=== PATIENT | female | born 1975 | race African-American/Black ===

== ENCOUNTER 2016-11-03 10:11 | Emergency (ER) | payer SELFPAY ==
[2016-11-03] MEDS ORDERED: Albuterol/Ipratropium NEB.SOL* Albuterol 2.5 MG/Ipratropium 0.5 MG 3 ML INH ONE (10:44)
[2016-11-03] MEDS ORDERED: Albuterol 2.5 MG/3 ML NEB.SOL* (0.083%) INH PRN (10:50)
[2016-11-03] MEDS ORDERED: Albuterol 2.5 MG/3 ML NEB.SOL* (0.083%) ONE (10:53)
[2016-11-03] MEDS ORDERED: methylPREDNISolone 125 MG* 2 ML VIAL IV ONE (11:04)
[2016-11-03] MEDS ORDERED: Magnesium Sulfate 2 GM IV* 2 GM/50 ML BAG IVPB ONE (11:39)
[2016-11-03 12:37] VITALS: BP 116/57
--- NOTE | 2016-11-03 15:20 | ED ---
I, Lon,Ravi, scribed for William Grewal MD on 11/03/16 at 1141 . Shortness of Breath - HPI Summary HPI Summary: This 41 y/o female presents to ED via private vehicle for acute on chronic SOB since this morning. She reports nonproductive cough. PMHx does include known asthma. Negative fever, chills, CP, or rhinorrhea. Pt has been out of Dulera since 2 weeks ago, but was not able to get prescription. Pt does have inhaler at home. Pt states that she is nonsmoker. - History of Current Complaint Chief Complaint: EDAsthma Hx Obtained From: Patient Onset/Duration: Sudden Onset Timing: Constant Current Severity: Moderate Dyspnea At: Rest Aggrevating Factors: Nothing Alleviating Factors: Nothing Associated Signs & Symptoms: Negative - Allergy/Home Medications Allergies/Adverse Reactions: Allergies Allergy/AdvReac Type Severity Reaction Status Date / Time Ibuprofen Allergy Anaphylatic Verified 11/03/16 10:14 Shock PMH/Surg Hx/FS Hx/Imm Hx Respiratory History: Reports: Hx Asthma - Surgical History Surgery Procedure, Year, and Place: tubal ligation 1997 Infectious Disease History: No Infectious Disease History: Denies: Traveled Outside the [place] in Last 30 Days - Family History Known Family History: Negative: Cardiac Disease - Social History Alcohol Use: Occasionally Hx Substance Use: No Substance Use Type: Reports: None Hx Tobacco Use: Yes Smoking Status (MU): Former Smoker Review of Systems Negative: Fever Negative: Erythema Negative: Sore Throat, Nasal Discharge Negative: Chest Pain Positive: Shortness Of Breath, Cough Negative: Abdominal Pain, Vomiting, Nausea Negative: dysuria, hematuria Negative: Edema Negative: Rash All Other Systems Reviewed And Are Negative: Yes Physical Exam - Summary Physical Exam Summary: Constitutional: Well-developed, Well-nourished, Alert. (-) Distressed Skin: Warm, Dry HENT: Normocephalic; Atraumatic Eyes: Conjunctiva normal Neck: Musculoskeletal ROM normal neck. (-) JVD, (-) Stridor, (-) Tracheal deviation Respiratory: Expiratory wheezes, Decreased breath sound. Cardio: Rhythm regular, rate normal, Heart sounds normal; Intact distal pulses; The pedal pulses are 2+ and symmetric. Radial pulses are 2+ and symmetric. (-) Murmur Pulmonary/Chest wall: Effort normal. (-) Respiratory distress, (-) Wheezes, (-) Rales Abd: Soft, (-) Tenderness, (-) Distension, (-) Guarding, (-) Rebound Musculoskeletal: (-) Edema Lymph: (-) Cervical adenopathy Neuro: Alert, Oriented x3 Psych: Mood and affect Normal Triage Information Reviewed: Yes Vital Signs On Initial Exam: Initial Vitals Temp Pulse Resp BP Pulse Ox 97.2 F 125 24 151/87 98 11/03/16 10:14 11/03/16 10:14 11/03/16 10:14 11/03/16 10:14 11/03/16 10:14 Vital Signs Reviewed: Yes - [place] Coma Scale Coma Scale Total: 15 Diagnostics - Vital Signs Vital Signs Temp Pulse Resp BP Pulse Ox 11/03/16 11:31 104 27 95 11/03/16 11:29 127 25 96 11/03/16 11:18 97.1 F 123 22 148/79 98 11/03/16 10:14 97.2 F 125 24 151/87 98 - Laboratory Lab Statement: Any lab studies that have been ordered have been reviewed, and results considered in the medical decision making process. Course/Dx - Course Assessment/Plan: This 41 y/o female presents to ED with chief complaint of SOB worse since this morning. Pt reports increased SOB and difficulty controlling her known asthma since she ran out of [place] ~ 2 weeks ago. She reports difficulty obtaining her rx due to lack of her insurance. Pt symptomically treated with inhalation tx during her ED course, and her breathing improved. Pt is discharged with Urgent Rx voucher and is instructed to f/u with her primary care doctor. - Diagnoses Provider Diagnoses: Asthma exacerbation Discharge - Discharge Plan Condition: Stable Disposition: HOME Prescriptions: Albuterol 2.5MG/3ML (0.083%)* [Ventolin 2.5 MG/3 ML NEB.TELLO*] 2.5 mg INH Q4H PRN #84 neb.soln PRN Reason: Sob/Wheezing Albuterol HFA INHALER* [Ventolin HFA Inhaler*] 2 puff INH Q4H PRN #1 mdi PRN Reason: Sob/Wheezing predniSONE TAB* [Deltasone TAB*] 50 mg PO DAILY #5 tab Patient Education Materials: Asthma (ED), Prednisone (By mouth), Albuterol (By breathing) Referrals: Arleen Ayers MD [Primary Care Provider] - 2 Days The documentation as recorded by the Lon cruz Soohyun accurately reflects the service I personally performed and the decisions made by , William Grewal MD.
== END 2016-11-03 13:58 | disposition home or self-care (01) ==
LOC: ED 10:11
DX: J45.901 Unspecified asthma with (acute) exacerbation (principal); Z87.891 Personal history of nicotine dependence
CPT/HCPCS: 94150; 94640; 96365; 96374; 99282; A9270-GY; J2930; J3475

== ENCOUNTER 2017-02-26 17:41 | Emergency (ER) | payer SELFPAY ==
[2017-02-26] MEDS ORDERED: HYDROcodone/ACETAMIN 5-325 MG* 1 TAB PO ONE (19:08)
[2017-02-26] MEDS ORDERED: Clindamycin 600 MG IVPREMIX(* 600 MG/50 ML SDV IV ONE (19:08)
--- NOTE | 2017-02-26 19:11 | ED ---
Throat Pain/Nasal Congestion - HPI Summary HPI Summary: Pt here w/ what she believes is an abscess in her Rt cheek/face. Started as sinus pressure yesterday and swollen today. She has dental fractures in multiple teeth along Rt upper maxilla and reports h/o abscesses as a result of these teeth. She has not had an infection in years. Denies drainage, foul taste , fever, chills, eye pain, neck pain, trouble breathing or swallowing. Has a dental appt in 2 weeks where she plans to request extraction. Went to work today and plans to go to work tomorrow. - History of Current Complaint Chief Complaint: EDDentalPain Time Seen by Provider: 02/26/17 18:56 Hx Obtained From: Patient - Allergies/Home Medications Allergies/Adverse Reactions: Allergies Allergy/AdvReac Type Severity Reaction Status Date / Time Ibuprofen Allergy Anaphylatic Verified 02/26/17 18:09 Shock PMH/Surg Hx/FS Hx/Imm Hx Respiratory History: Reports: Hx Asthma - Surgical History Surgery Procedure, Year, and Place: tubal ligation 1997 Infectious Disease History: No Infectious Disease History: Denies: Traveled Outside the [place] in Last 30 Days - Family History Known Family History: Negative: Cardiac Disease - Social History Alcohol Use: Occasionally Hx Substance Use: No Substance Use Type: Reports: None Hx Tobacco Use: Yes Smoking Status (MU): Former Smoker Physical Exam Vital Signs On Initial Exam: Initial Vitals Temp Pulse Resp BP Pulse Ox 98.7 F 84 18 137/87 97 02/26/17 17:43 02/26/17 17:43 02/26/17 17:43 02/26/17 17:43 02/26/17 17:43 Diagnostics - Vital Signs Vital Signs Temp Pulse Resp BP Pulse Ox 02/26/17 18:06 97.7 F 82 18 136/66 100 02/26/17 17:43 98.7 F 84 18 137/87 97 - Laboratory Lab Statement: Any lab studies that have been ordered have been reviewed, and results considered in the medical decision making process.
[2017-02-26 20:18] VITALS: BP 132/86
== END 2017-02-26 20:17 | disposition home or self-care (01) ==
LOC: ED 17:41
DX: K08.89 Other specified disorders of teeth and supporting structures (principal); J45.909 Unspecified asthma, uncomplicated; Z87.891 Personal history of nicotine dependence
CPT/HCPCS: 96374; 99282

== ENCOUNTER 2017-10-15 08:56 | Emergency (ER) | payer OTHER ==
[2017-10-15] MEDS ORDERED: Albuterol/Ipratropium NEB.SOL* Albuterol 2.5 MG/Ipratropium 0.5 MG 3 ML INH ONE ×2 (09:05→10:06)
[2017-10-15] MEDS ORDERED: methylPREDNISolone 125 MG* 2 ML VIAL IV ONE (09:05)
[2017-10-15 09:44] LABS: ABS Basophils 0 10^3/ul (0-0.2); ABS Eosinophils 0.7 10^3/ul (0-0.6); ABS Monocytes 0.5 10^3/ul (0-0.8); ABS Neutrophils 3.1 10^3/ul (1.5-7.7); ABS Nucleated RBC 0 10^3/ul; Eosinophil % 10.4 % (0-6); Hematocrit 39 % (35-47); Hemoglobin 13.2 g/dl (12.0-16.0); Mean Corpuscular HGB Conc 34 g/dl (31-36); Mean Corpuscular Hemoglobin 28 pg (27-31); Mean Corpuscular Volume 82 fL (80-97); Mean Platelet Volume 9 um3 (7.4-10.4); Nucleated Red Blood Cells % 0.1; Platelet Count 300 10^3/ul (150-450); Red Blood Count 4.72 10^6/ul (4.0-5.4); Red Cell Distribution Width 14 % (10.5-15); White Blood Count 6.4 10^3/ul (3.5-10.8)
[2017-10-15 10:02] LABS: EGFR Non-African American 93.8 (>60)
[2017-10-15] MEDS ORDERED: NS 0.9% 1000 ML* 1,000 ML IV ONE (10:04)
--- NOTE | 2017-10-15 10:06 | RAD ---
INDICATION: Wheezing COMPARISON: None TECHNIQUE: PA and lateral views of the chest were obtained. FINDINGS: The heart and mediastinum are normal in size and contour. The lungs are grossly clear. There is no evidence of large pleural effusion. Visualized bones are normal for the patient's age. There is no radiographic evidence of free air beneath the diaphragm IMPRESSION: No radiographic evidence of acute cardiopulmonary disease.
[2017-10-15] MEDS ORDERED: Acetaminophen TAB* 325 MG PO ONE (10:13)
--- NOTE | 2017-10-15 10:23 | ED ---
Asthma - HPI Summary HPI Summary: Patient presents to the ED with CC of asthma exacerbation since this morning. She notes to worsening wheezing since yesterday and has been using her at home nebulizer treatments without effect. She notes to cough with congestion as well. Yellow sputum - mild amount. Denies fevers, sweats and chills. Denies abd pain, N/V/C/D. Pulses +2 bilaterally and cap refill < 2 sec. Appears in respiratory distress without pursed lips or discolorations noted to fingertips or lips. At home medications include Dolera. She also has albuterol and nebulizer. Otherwise healthy. Denies sick contacts. Denies smoking history. - History of Current Complaint Chief Complaint: EDShortnessOfBreath Stated Complaint: CHEST CONGESTION/COUGH/HEADACHE Time Seen by Provider: 10/15/17 08:58 Hx Obtained From: Patient Hx Last Menstrual Period: last month Onset/Duration: Sudden Onset Timing: Constant Initial Severity: Moderate Current Severity: Moderate Pain Intensity: 7 Pain Scale Used: 0-10 Numeric Location/Character: Cough (Productive) Aggravating Symptoms: Weather Change, Allergens Alleviating Symptoms: Steriods, Inhalers/Nebulizers Associated Signs and Symptoms: Positive: URI, Shortness of Breath - Risk Factors Status Asthmaticus Risk Factors: Negative - Allergy/Home Medications Allergies/Adverse Reactions: Allergies Allergy/AdvReac Type Severity Reaction Status Date / Time Ibuprofen Allergy Anaphylatic Verified 10/15/17 09:00 Shock PMH/Surg Hx/FS Hx/Imm Hx Previously Healthy: Yes Endocrine/Hematology History: Denies: Hx Anticoagulant Therapy, Hx Blood Disorders, Hx Unexplained Bleeding Respiratory History: Reports: Hx Asthma - Surgical History Surgery Procedure, Year, and Place: tubal ligation 1997 - Immunization History Hx Pertussis Vaccination: No Immunizations Up to Date: Unable to Obtain/Confirm Infectious Disease History: No Infectious Disease History: Denies: Traveled Outside the [place] in Last 30 Days - Family History Known Family History: Negative: Cardiac Disease - Social History Occupation: Employed Full-time Lives: With Family Alcohol Use: Occasionally Hx Substance Use: No Substance Use Type: Reports: None Hx Tobacco Use: Yes Smoking Status (MU): Former Smoker Review of Systems Constitutional: Negative Negative: Fever, Chills, Fatigue, Skin Diaphoresis Eyes: Negative Cardiovascular: Negative Positive: Shortness Of Breath, Cough Gastrointestinal: Negative Genitourinary: Negative Positive: no symptoms reported, see HPI Skin: Negative Neurological: Negative All Other Systems Reviewed And Are Negative: Yes Physical Exam Triage Information Reviewed: Yes Vital Signs On Initial Exam: Initial Vitals Temp Pulse Resp BP Pulse Ox 96.8 F 104 28 154/91 99 10/15/17 09:01 10/15/17 09:01 10/15/17 09:01 10/15/17 09:01 10/15/17 09:01 Vital Signs Reviewed: Yes Appearance: Positive: Well-Appearing - respiratory distress Skin: Positive: Skin Color Reflects Adequate Perfusion Head/Face: Positive: Normal Head/Face Inspection Eyes: Positive: EOMI, SUSANNA, Conjunctiva Clear Neck: Positive: Supple, Nontender, No Lymphadenopathy Respiratory/Lung Sounds: Positive: Breath Sounds Present, Wheezes. Negative: Decreased Breath Sounds, Subcutaneous Emphysema, Stridor, Tracheal Deviation Cardiovascular: Positive: RRR, Pulses are Symmetrical in both Upper and Lower Extremities Musculoskeletal: Positive: Normal, Strength/ROM Intact Neurological: Positive: Sensory/Motor Intact, Alert, Oriented to Person Place, Time, Speech Normal Psychiatric: Positive: Affect/Mood Appropriate - [place] Coma Scale Coma Scale Total: 15 Diagnostics - Vital Signs Vital Signs Temp Pulse Resp BP Pulse Ox 10/15/17 09:27 97 16 100 10/15/17 09:23 103 98 10/15/17 09:01 96.8 F 104 28 154/91 99 - Laboratory Lab Results: Lab Results 10/15/17 10/15/17 10/15/17 Range/Units 09:27 09:33 09:33 WBC 6.4 (3.5-10.8) 10^3/ul RBC 4.72 (4.0-5.4) 10^6/ul Hgb 13.2 (12.0-16.0) g/dl Hct 39 (35-47) % MCV 82 (80-97) fL MCH 28 (27-31) pg MCHC 34 (31-36) g/dl RDW 14 (10.5-15) % Plt Count 300 (150-450) 10^3/ul MPV 9 (7.4-10.4) um3 Neut % (Auto) 48.9 (38-83) % Lymph % (Auto) 32.0 (25-47) % [place] % (Auto) 7.9 (1-9) % Eos % (Auto) 10.4 H (0-6) % Baso % (Auto) 0.8 (0-2) % Absolute Neuts (auto) 3.1 (1.5-7.7) 10^3/ul Absolute Lymphs (auto) 2.0 (1.0-4.8) 10^3/ul Absolute Monos (auto) 0.5 (0-0.8) 10^3/ul Absolute Eos (auto) 0.7 H (0-0.6) 10^3/ul Absolute Basos (auto) 0 (0-0.2) 10^3/ul Absolute Nucleated RBC 0 10^3/ul Nucleated RBC % 0.1 Sodium 135 (133-145) mmol/L Potassium 3.5 (3.5-5.0) mmol/L Chloride 106 (101-111) mmol/L Carbon Dioxide 20 L (22-32) mmol/L Anion Gap 9 (2-11) mmol/L BUN 5 L (6-24) mg/dL Creatinine 0.69 (0.51-0.95) mg/dL Est GFR ( Amer) 120.6 (>60) Est GFR (Non-Af Amer) 93.8 (>60) BUN/Creatinine Ratio 7.2 L (8-20) Glucose 93 (70-100) mg/dL Lactic Acid (0.5-2.0) mmol/L Calcium 9.4 (8.6-10.3) mg/dL Total Bilirubin 0.70 (0.2-1.0) mg/dL AST 20 (13-39) U/L ALT 15 (7-52) U/L Alkaline Phosphatase 56 (34-104) U/L Troponin I 0.00 (<0.04) ng/mL C-Reactive Protein < 1.00 (< 5.00) mg/L Total Protein 7.0 (6.4-8.9) g/dL Albumin 4.1 (3.2-5.2) g/dL Globulin 2.9 (2-4) g/dL Albumin/Globulin Ratio 1.4 (1-3) Beta HCG, Quant < 0.60 mIU/mL Influenza A (Rapid) Negative (Negative) Influenza B (Rapid) Negative (Negative) 10/15/17 Range/Units 09:33 WBC (3.5-10.8) 10^3/ul RBC (4.0-5.4) 10^6/ul Hgb (12.0-16.0) g/dl Hct (35-47) % MCV (80-97) fL MCH (27-31) pg MCHC (31-36) g/dl RDW (10.5-15) % Plt Count (150-450) 10^3/ul MPV (7.4-10.4) um3 Neut % (Auto) (38-83) % Lymph % (Auto) (25-47) % [place] % (Auto) (1-9) % Eos % (Auto) (0-6) % Baso % (Auto) (0-2) % Absolute Neuts (auto) (1.5-7.7) 10^3/ul Absolute Lymphs (auto) (1.0-4.8) 10^3/ul Absolute Monos (auto) (0-0.8) 10^3/ul Absolute Eos (auto) (0-0.6) 10^3/ul Absolute Basos (auto) (0-0.2) 10^3/ul Absolute Nucleated RBC 10^3/ul Nucleated RBC % Sodium (133-145) mmol/L Potassium (3.5-5.0) mmol/L Chloride (101-111) mmol/L Carbon Dioxide (22-32) mmol/L Anion Gap (2-11) mmol/L BUN (6-24) mg/dL Creatinine (0.51-0.95) mg/dL Est GFR ( Amer) (>60) Est GFR (Non-Af Amer) (>60) BUN/Creatinine Ratio (8-20) Glucose (70-100) mg/dL Lactic Acid 1.5 (0.5-2.0) mmol/L Calcium (8.6-10.3) mg/dL Total Bilirubin (0.2-1.0) mg/dL AST (13-39) U/L ALT (7-52) U/L Alkaline Phosphatase (34-104) U/L Troponin I (<0.04) ng/mL C-Reactive Protein (< 5.00) mg/L Total Protein (6.4-8.9) g/dL Albumin (3.2-5.2) g/dL Globulin (2-4) g/dL Albumin/Globulin Ratio (1-3) Beta HCG, Quant mIU/mL Influenza A (Rapid) (Negative) Influenza B (Rapid) (Negative) Result Diagrams: 10/15/17 09:33 10/15/17 09:33 Lab Statement: Any lab studies that have been ordered have been reviewed, and results considered in the medical decision making process. Asthma Course/Dx - Course Course Of Treatment: During the course of treatment, patient is noted to be wheezing and in respiratory distress. She is given inhalation treatment immediatley on arrival. Feels improved. 125mg Solumedrol given. Labs obtained and chest xray with no acute findings. VS remain stable and continues to sat on RA at 98%. She declines another inhalation treatment. She is observed for 3 hours and breathing is improved. She is given 5 days prednisone , azithromycin d/t mucous production with cough and COPD history. She is given a note for 2 days out of work. She states she has all albuterol/inhalation treatments at home and does not require prescriptions. Treatment options explained to patient. Patient understands the plan, voices no concerns at this time and understands the return precatuions given to them if they develop any worsening or changing symptoms. They are OK for discharge at this time. VS stable on discharge. Primary care follow up as agreed on discharge. - Diagnoses Differential Diagnosis/HQI/PQRI: Positive: COPD Excerbation Provider Diagnoses: Asthma exacerbation Discharge - Discharge Plan Condition: Stable Disposition: HOME Patient Education Materials: Bronchospasm (ED) Forms: *Work Release Referrals: Cindy Moscoso PACKAGING DESIGNER [Primary Care Provider] - Additional Instructions: Prednisone daily for 5 days - take in the MORNING Azithromycin - take 2 today and 1 daily for the next 4 days Use nebulizers as needed at home If you develop any worsening symptoms or difficultly breathing - return to the ED immediately Take prescribed medication as directed. Also recommend taking Mucinex-D daily, along with doing saline rinses, salt water gargles, taking zicam and drinking emergen-c (available over the counter). Extra pillow at bedtime. Hot showers. Increase fluid intake. Get plenty of rest. Any new or worsening symptoms (fever, difficulty breathing, worsening symptoms) please seek medical attention immediately. Follow up with PCP for re-check and evaluation.
[2017-10-15 12:59] VITALS: BP 105/62
== END 2017-10-15 12:59 | disposition home or self-care (01) ==
LOC: ED 08:56
DX: J45.901 Unspecified asthma with (acute) exacerbation (principal); Z87.891 Personal history of nicotine dependence
CPT/HCPCS: 36415; 71020; 80053; 83605; 84484; 84702; 85025; 86140; 87502; 93005; 94640; 96360; 96374; 99282; A9270-GY; J2930

== ENCOUNTER 2017-10-28 20:10 | Emergency (ER) | payer OTHER ==
[2017-10-28] MEDS ORDERED: Albuterol/Ipratropium NEB.SOL* Albuterol 2.5 MG/Ipratropium 0.5 MG 3 ML INH ONE ×3 (20:27→21:30)
[2017-10-28] MEDS ORDERED: methylPREDNISolone 125 MG* 2 ML VIAL IV ONE (20:45)
[2017-10-28 21:10] LABS: ABS Basophils 0.1 10^3/ul (0-0.2); ABS Eosinophils 0.6 10^3/ul (0-0.6); ABS Lymphocytes 2.7 10^3/ul (1.0-4.8); ABS Monocytes 0.6 10^3/ul (0-0.8); ABS Neutrophils 5.1 10^3/ul (1.5-7.7); ABS Nucleated RBC 0 10^3/ul; Hematocrit 37 % (35-47); Hemoglobin 12.7 g/dl (12.0-16.0); Lymphocyte % 29.3 % (25-47); Mean Corpuscular HGB Conc 35 g/dl (31-36); Mean Corpuscular Hemoglobin 28 pg (27-31); Mean Corpuscular Volume 81 fL (80-97); Mean Platelet Volume 8 um3 (7.4-10.4); Nucleated Red Blood Cells % 0; Platelet Count 285 10^3/ul (150-450); Red Blood Count 4.54 10^6/ul (4.0-5.4); Red Cell Distribution Width 14 % (10.5-15); White Blood Count 9.1 10^3/ul (3.5-10.8)
[2017-10-28 21:20] LABS: INR 1.06 (0.77-1.02)
[2017-10-28 21:25] LABS: EGFR Non-African American 87.9 (>60)
--- NOTE | 2017-10-28 21:27 | RAD ---
INDICATION: Short of breath COMPARISON: October 15, 2017 TECHNIQUE: An AP portable view obtained at 2103 hours is submitted. FINDINGS: Bones/Soft Tissues: There are no acute bony findings. Cardiomediastinal: The cardiomediastinal silhouette is normal. Lungs: There are no infiltrates. Pleura: There are no pleural effusions. Other: None IMPRESSION: NO ACTIVE DISEASE
[2017-10-28] MEDS ORDERED: Albuterol 0.5% CONC NEB.SOL* 5 MG/ML 20 ml BOT INH ONE (22:09)
[2017-10-28] MEDS ORDERED: predniSONE TAB* 20 MG PO ONE (22:27)
--- NOTE | 2017-10-28 22:30 | ED ---
Dequan Villa Stephanie, scribed for Rolf Diaz MD on 10/28/17 at 2055 . Asthma - HPI Summary HPI Summary: The pt is a 42 y/o F presenting to the ED with c/o asthma that began 2 days ago on 10/26/17. Symptoms include chest tightness, productive cough (clear mucus intermittently streaked with blood) and SOB. The pt denies fever or discolored mucus. The pt has been using inhalers and nebs with minimal improvement. She had an asthma attack today at 08:00. - History of Current Complaint Chief Complaint: EDShortnessOfBreath Stated Complaint: ASTHMA PROBLEM Time Seen by Provider: 10/28/17 20:27 Hx Obtained From: Patient Hx Last Menstrual Period: last month Onset/Duration: Gradual Onset, Lasting Days - 2, Still Present Timing: Intermittent Episode Lasting Current Severity: Severe Pain Intensity: 7 Pain Scale Used: 0-10 Numeric Aggravating Symptoms: Nothing Alleviating Symptoms: Inhalers/Nebulizers - Allergy/Home Medications Allergies/Adverse Reactions: Allergies Allergy/AdvReac Type Severity Reaction Status Date / Time Ibuprofen Allergy Anaphylatic Verified 10/28/17 20:21 Shock PMH/Surg Hx/FS Hx/Imm Hx Endocrine/Hematology History: Denies: Hx Anticoagulant Therapy, Hx Blood Disorders, Hx Unexplained Bleeding Respiratory History: Reports: Hx Asthma - Surgical History Surgery Procedure, Year, and Place: tubal ligation 1997 Infectious Disease History: No Infectious Disease History: Denies: Traveled Outside the [place] in Last 30 Days - Family History Known Family History: Negative: Cardiac Disease - Social History Occupation: Employed Full-time Lives: Alone Alcohol Use: Occasionally Hx Substance Use: No Substance Use Type: Reports: None Hx Tobacco Use: Yes Smoking Status (MU): Former Smoker Review of Systems Negative: Fever Positive: Chest Pain - tightness Positive: Shortness Of Breath, Cough - productive, Other - Negative: Discolored mucus All Other Systems Reviewed And Are Negative: Yes Physical Exam - Summary Physical Exam Summary: General: well-appearing, no pain distress Skin: warm, color reflects adequate perfusion, dry Head: normal Eyes: EOMI, SUSANNA ENT: normal Neck: supple, nontender Respiratory: breath sounds present, bilateral expiratory wheezes. Mild to moderate respiratory distress. Cardiovascular: RRR Abdomen: soft, nontender Bowel: present Musculoskeletal: normal, strength/ROM intact Neurological: normal, sensory/motor intact, A&O x3 Psychological: affect/mood appropriate Triage Information Reviewed: Yes Vital Signs On Initial Exam: Initial Vitals Temp Pulse Resp BP Pulse Ox 98.1 F 105 20 154/89 95 10/28/17 20:10 10/28/17 20:10 10/28/17 20:10 10/28/17 20:10 10/28/17 20:10 Vital Signs Reviewed: Yes - [place] Coma Scale Coma Scale Total: 15 Diagnostics - Vital Signs Vital Signs Temp Pulse Resp BP Pulse Ox 10/28/17 20:37 96 16 99 10/28/17 20:10 98.1 F 105 20 154/89 95 - Laboratory Lab Results: Lab Results 10/28/17 10/28/17 10/28/17 Range/Units 21:00 21:00 21:00 WBC (3.5-10.8) 10^3/ul RBC (4.0-5.4) 10^6/ul Hgb (12.0-16.0) g/dl Hct (35-47) % MCV (80-97) fL MCH (27-31) pg MCHC (31-36) g/dl RDW (10.5-15) % Plt Count (150-450) 10^3/ul MPV (7.4-10.4) um3 Neut % (Auto) (38-83) % Lymph % (Auto) (25-47) % [place] % (Auto) (1-9) % Eos % (Auto) (0-6) % Baso % (Auto) (0-2) % Absolute Neuts (auto) (1.5-7.7) 10^3/ul Absolute Lymphs (auto) (1.0-4.8) 10^3/ul Absolute Monos (auto) (0-0.8) 10^3/ul Absolute Eos (auto) (0-0.6) 10^3/ul Absolute Basos (auto) (0-0.2) 10^3/ul Absolute Nucleated RBC 10^3/ul Nucleated RBC % INR (Anticoag Therapy) 1.06 H (0.77-1.02) Sodium 136 (133-145) mmol/L Potassium 3.1 L (3.5-5.0) mmol/L Chloride 106 (101-111) mmol/L Carbon Dioxide 21 L (22-32) mmol/L Anion Gap 9 (2-11) mmol/L BUN 6 (6-24) mg/dL Creatinine 0.73 (0.51-0.95) mg/dL Est GFR ( Amer) 113.0 (>60) Est GFR (Non-Af Amer) 87.9 (>60) BUN/Creatinine Ratio 8.2 (8-20) Glucose 101 H (70-100) mg/dL Lactic Acid 1.0 (0.5-2.0) mmol/L Calcium 9.8 (8.6-10.3) mg/dL Magnesium 1.9 (1.9-2.7) mg/dL Total Bilirubin 0.50 (0.2-1.0) mg/dL AST 20 (13-39) U/L ALT 14 (7-52) U/L Alkaline Phosphatase 60 (34-104) U/L Troponin I 0.01 (<0.04) ng/mL C-Reactive Protein 1.24 (< 5.00) mg/L Total Protein 7.0 (6.4-8.9) g/dL Albumin 4.3 (3.2-5.2) g/dL Globulin 2.7 (2-4) g/dL Albumin/Globulin Ratio 1.6 (1-3) TSH 4.36 (0.34-5.60) mcIU/mL Beta HCG, Quant < 0.60 mIU/mL 10/28/17 Range/Units 21:00 WBC 9.1 (3.5-10.8) 10^3/ul RBC 4.54 (4.0-5.4) 10^6/ul Hgb 12.7 (12.0-16.0) g/dl Hct 37 (35-47) % MCV 81 (80-97) fL MCH 28 (27-31) pg MCHC 35 (31-36) g/dl RDW 14 (10.5-15) % Plt Count 285 (150-450) 10^3/ul MPV 8 (7.4-10.4) um3 Neut % (Auto) 56.3 (38-83) % Lymph % (Auto) 29.3 (25-47) % [place] % (Auto) 6.7 (1-9) % Eos % (Auto) 7.0 H (0-6) % Baso % (Auto) 0.7 (0-2) % Absolute Neuts (auto) 5.1 (1.5-7.7) 10^3/ul Absolute Lymphs (auto) 2.7 (1.0-4.8) 10^3/ul Absolute Monos (auto) 0.6 (0-0.8) 10^3/ul Absolute Eos (auto) 0.6 (0-0.6) 10^3/ul Absolute Basos (auto) 0.1 (0-0.2) 10^3/ul Absolute Nucleated RBC 0 10^3/ul Nucleated RBC % 0 INR (Anticoag Therapy) (0.77-1.02) Sodium (133-145) mmol/L Potassium (3.5-5.0) mmol/L Chloride (101-111) mmol/L Carbon Dioxide (22-32) mmol/L Anion Gap (2-11) mmol/L BUN (6-24) mg/dL Creatinine (0.51-0.95) mg/dL Est GFR ( Amer) (>60) Est GFR (Non-Af Amer) (>60) BUN/Creatinine Ratio (8-20) Glucose (70-100) mg/dL Lactic Acid (0.5-2.0) mmol/L Calcium (8.6-10.3) mg/dL Magnesium (1.9-2.7) mg/dL Total Bilirubin (0.2-1.0) mg/dL AST (13-39) U/L ALT (7-52) U/L Alkaline Phosphatase (34-104) U/L Troponin I (<0.04) ng/mL C-Reactive Protein (< 5.00) mg/L Total Protein (6.4-8.9) g/dL Albumin (3.2-5.2) g/dL Globulin (2-4) g/dL Albumin/Globulin Ratio (1-3) TSH (0.34-5.60) mcIU/mL Beta HCG, Quant mIU/mL Result Diagrams: 10/28/17 21:00 10/28/17 21:00 Lab Statement: Any lab studies that have been ordered have been reviewed, and results considered in the medical decision making process. - Radiology CXR Xray Interpretation: No Acute Changes Radiology Interpretation Completed By: Radiologist - NO ACTIVE DISEASE - EKG 21:03 EKG Rhythm: Sinus Tachycardia - [address] Segment: Normal EKG Interpretation: RBBB Asthma Course/Dx - Course Course Of Treatment: PATIENT IMPROVED IN ED. F/U PMD; RETURN IF WORSE. CRITICAL CARE TIME LESS THAN 30 MINUTES. - Diagnoses Provider Diagnoses: Asthma Discharge - Discharge Plan Condition: Stable Disposition: HOME Prescriptions: predniSONE TAB* [Deltasone TAB*] 60 mg PO DAILY #15 tab Patient Education Materials: Asthma (ED) Referrals: Cindy Moscoso STUDENT LIFE VICE PRESIDENT [Primary Care Provider] - Additional Instructions: FOLLOW UP WITH YOUR DOCTOR. RETURN TO THE EMERGENCY DEPARTMENT FOR ANY WORSENING OF YOUR CONDITION; SHORTNESS OF BREATH, YOU FEEL ILL OR QUESTIONS OR CONCERNS. The documentation as recorded by the Dequan cruz Stephanie accurately reflects the service I personally performed and the decisions made by me, Rolf Diaz MD.
[2017-10-29 00:01] VITALS: BP 145/88
== END 2017-10-29 00:01 | disposition home or self-care (01) ==
LOC: ED 20:10
DX: J45.909 Unspecified asthma, uncomplicated (principal); R06.02 Shortness of breath; R07.9 Chest pain, unspecified; R05 Cough; Z87.891 Personal history of nicotine dependence
CPT/HCPCS: 36415; 71045; 80053; 83605; 83735; 84443; 84484; 84702; 85025; 85610; 86140; 93005; 94640; 99282; A9270-GY; J2930; J7512; J7611

== ENCOUNTER 2019-01-17 08:42 | Day surgery (SDC) | payer OTHER ==
--- NOTE | 2019-01-12 13:02 | HP ---
PREOPERATIVE HISTORY AND PHYSICAL: DATE OF SURGERY/ADMISSION: 01/17/19 DATE OF OFFICE VISIT/ENCOUNTER: 01/11/19 ATTENDING SURGEON: Anuja Carballo MD.* (DICTATED BY IVORY RIOS) PROCEDURE: Left wrist carpal tunnel release. HISTORY OF PRESENT ILLNESS: This is a 43-year-old female who works as a health keeper janitor supervisor at [email or web address]. She complains of severe pain, numbness, and tingling in her left hand. This has been ongoing for 2 months. She denies any injury. It has gotten a lot worse recently. She rates her pain as a 10/ 10. She has tried using a brace and it was a bit helpful, but did not resolve the problem. The symptoms wake her up at night. She complains of pain and numbness primarily in the thumb. On clinical exam, she has been diagnosed with carpal tunnel syndrome. The patient is interested in pursuing surgical intervention for this problem. PAST MEDICAL HISTORY: 1. Asthma. 2. Seasonal allergies. PAST SURGICAL HISTORY: 1. Tubal ligation in 1997. 2. Surgery for a tubal . MEDICATIONS: 1. Albuterol sulfate 1 vial via nebulizer 4 times a day p.r.n. 2. Dulera 200/5 mcg/ACT 2 puffs twice a day. 3. Mobic 15 mg 1 tab daily p.r.n. pain. 4. Ventolin HFA inhaler 2 puffs a day as needed. 5. Vitamin D3 at 1000 units daily. 6. Advil PM at night. ALLERGIES: The patient reports an allergy to IBUPROFEN, which causes anaphylaxis; however, she is fine taking Advil PM. FAMILY MEDICAL HISTORY: Hypertension, diabetes, stroke, and lupus. SOCIAL HISTORY: The patient is a janitor supervisor at [email or web address] in [place]. She also works [employer]. She denies tobacco use and recreational drug use. She drinks alcohol on regular occasion, approximately 1 to 2 glasses of wine a day. REVIEW OF SYSTEMS: Negative for general, cephalic, cardiovascular, respiratory , GI, , other musculoskeletal, integumentary, endocrine, neurologic, and hematologic symptoms. Infectious Disease: Negative for MRSA, hepatitis C, HIV. PHYSICAL EXAMINATION GENERAL: Well-developed, well-nourished, 43-year-old female, in no acute distress. VITAL SIGNS: Height 5 feet 2 inches, weight 177 pounds, blood pressure 122/82, pulse rate 87. HEENT: Normocephalic, atraumatic. Pupils are equal, round, and reactive to light and accommodation. Extraocular movements are intact. Throat is clear. NECK: Supple. No palpable lymph nodes. PULMONARY: Lungs are clear to auscultation bilaterally. No wheezes, rales, or rhonchi. CARDIOVASCULAR: Regular rate and rhythm. S1, S2. No murmurs, rubs, or gallops. No edema. ABDOMEN: Positive bowel sounds, soft, nontender. NEUROLOGICAL: Alert and oriented x3. Cranial nerves II through XII are intact. MUSCULOSKELETAL: On exam of her left hand, there is no thenar wasting, but she does have some weakness with some abduction on the left when compared to the right. She has a positive Tinel's sign at the median nerve at the left wrist. She has good motion in her fingers. She has decreased sensation in the median nerve distribution. IMPRESSION: Left carpal tunnel syndrome. PLAN/RECOMMENDATIONS: The patient is scheduled to undergo a left wrist carpal tunnel release with Dr. Carballo on 01/17/19. She will return to the office 10 days postop for followup and suture removal. A prescription for Ultracet was e- scribed to the patient's pharmacy for postoperative pain management. IVORY RIOS [id number]/[facility] #: [id number] MTDD
[~2019-01-17 08:42] MED LIST: Buffered Lidocaine 1% SYRIN* 1 ML/SYRINGE INTRADERM ONE; Famotidine IV* 10 MG/ML 2 ML (20 mg) IV ONE; Lactated Ringers 1000 ML Bag* 1,000 ML IV SCH; Lidocaine 1% INJ* 10 MG/ML 30 ML SDV ONE
[2019-01-17] MEDS ORDERED: Famotidine IV* 10 MG/ML 2 ML (20 mg) ONE (09:11)
[2019-01-17] MEDS ORDERED: Midazolam* 1 MG/ML 5 ML VIAL (5 MG) ONE (10:46)
[2019-01-17] MEDS ORDERED: fentaNYL* 50 MCG/ML 2 ML VIAL (100 MCG VIAL) ONE (10:46)
[2019-01-17] MEDS ORDERED: Ondansetron INJ* 2 MG/ML VIAL ONE (11:21)
[2019-01-17] MEDS ORDERED: Propofol* 10 MG/ML 20 ML BTL ONE (11:21)
[2019-01-17] MEDS ORDERED: Acetaminophen TAB* 325 MG PO PRN (11:56)
[2019-01-17 12:20] VITALS: BP 136/81
--- NOTE | 2019-01-17 12:52 | OP ---
DATE OF OPERATION: 01/17/19 [facility] DATE OF : 77 SURGEON: Dr. Carballo. NUCLEAR POWERPLANT MECHANIC HELPER: IVORY Anderson. ANESTHESIA: Local MAC. ESTIMATED BLOOD LOSS: Zero. TOURNIQUET TIME: Approximately 10 minutes. PRE-OP DIAGNOSIS: Left carpal tunnel syndrome. POST-OP DIAGNOSIS: Left carpal tunnel syndrome. OPERATIVE PROCEDURE: Left carpal tunnel release. INDICATION FOR PROCEDURE: Joanie is a 43-year-old female who has numbness and tingling in the median nerve distribution of her left hand. She presents for a left carpal tunnel release. DESCRIPTION OF PROCEDURE: The patient was brought to the operating room and was given a sedation anesthetic and a local infiltration of 10 cc of 1% plain lidocaine in the palm of her left hand. The skin of her left hand and forearm was prepped and draped in the usual sterile fashion. The hand and forearm were exsanguinated and the tourniquet elevated to 250 mmHg. A longitudinal incision was made in the palm in line with the ring finger. We dissected through the subcutaneous tissue down to the transverse carpal ligament. The ligament was divided sharply with a knife and then more proximally with the scissors. The nerve was dissected free from the surrounding tissue and there was an area of significant compression at the midportion of the ligament. The wound was irrigated and the skin edges were reapproximated with 4-0 nylon suture. The wound was dressed with Xeroform, 4x4, Webril, and an Duncan wrap. The patient tolerated the procedure well and was brought to the recovery room in good condition. [id number]/[facility] #: [id number] [facility] SYSTEMGrace
== END 2019-01-17 12:20 | disposition home or self-care (01) ==
LOC: OREAST 08:42
PROVIDERS: ATTEND Orthopaedic Surgery
DX: G56.02 Carpal tunnel syndrome, left upper limb (principal); J45.909 Unspecified asthma, uncomplicated
CPT/HCPCS: J2250; J2405; J2704; J3010

== ENCOUNTER 2019-09-30 00:01 | Emergency (ER) | payer OTHER ==
[2019-09-30] MEDS ORDERED: Tetan/Diph/Pertus SYR(Tdap)* 0.5 ML SYR(BOOSTRIX) use SYR contains LATEX IM ONE (00:23)
[2019-09-30] MEDS ORDERED: Tenofovir/Emtricitab 200/300 * TAB PO ONE ×3 (00:23→09:00)
[2019-09-30] MEDS ORDERED: Raltegravir* 400 MG TAB PO ONE ×4 (00:23→09:00)
[2019-09-30 01:16] LABS: ALT 16 U/L (7-52); AST 24 U/L (13-39); Albumin 4.1 g/dL (3.2-5.2); Albumin/Globulin Ratio 1.4 (1-3); Alkaline Phosphatase 66 U/L (34-104); Anion Gap 9 mmol/L (2-11); BUN/Creatinine Ratio 14.9 (8-20); Blood Urea Nitrogen 10 mg/dL (6-24); CO2 Carbon Dioxide 23 mmol/L (22-32); Calcium 9.1 mg/dL (8.6-10.3); Chloride 104 mmol/L (101-111); EGFR African American 116.2 (>60); EGFR Non-African American 96.1 (>60); Glucose 97 mg/dL (70-100); Potassium 3.4 mmol/L (3.5-5.0); Sodium 136 mmol/L (135-145); Total Protein 7.1 g/dL (6.4-8.9)
[2019-09-30 01:22] LABS: ABS Eosinophils 0.2 10^3/ul (0-0.6); ABS Lymphocytes 1.6 10^3/ul (1.0-4.8); ABS Monocytes 0.5 10^3/ul (0-0.8); ABS Neutrophils 3.9 10^3/ul (1.5-7.7); Eosinophil % 3.3 %; Hematocrit 34 % (35-47); Hemoglobin 11.4 g/dL (12.0-16.0); Mean Corpuscular HGB Conc 33 g/dL (31-36); Mean Corpuscular Hemoglobin 27 pg (27-31); Mean Corpuscular Volume 80 fL (80-97); Mean Platelet Volume 8.2 fL (7.4-10.4); Nucleated Red Blood Cells % 0.1; Platelet Count 334 10^3/uL (150-450); Red Blood Count 4.27 10^6 /uL (3.70-4.87); Red Cell Distribution Width 14 % (10-15); White Blood Count 6.2 10^3/uL (3.5-10.8)
[2019-09-30 01:23] LABS: HCG Pregnancy < 0.60 mIU/mL
[2019-09-30 01:27] LABS: HIV 4th Generation Nonreactive (Nonreactive)
[2019-09-30 01:34] LABS: Hepatitis B Surface Antigen Nonreactive (Nonreactive)
--- NOTE | 2019-09-30 01:35 | ED ---
Medical Screening - HPI Summary HPI Summary: [facility] [place] presents for possible needle stick to distal tip of left index finger while changing laundry bags. Patient states she lifted bag and felt something sharp poke her finger, with positive bleeding afterwards. Denies any other pain, injury or symptoms. - History of Current Complaint Chief Complaint: EDExposureBodyFluid Stated Complaint: STICK PER PT Time Seen by Provider: 09/30/19 00:16 Onset/Duration: Started Minutes Ago Severity: mild PMH/Surg Hx/FS Hx/Imm Hx Endocrine/Hematology History: Denies: Hx Anticoagulant Therapy, Hx Blood Disorders, Hx Bone Marrow Disease , Hx Sickle Cell Disease, Hx Anemia, Hx Unexplained Bleeding Cardiovascular History: Denies: Hx Pacemaker/ICD Respiratory History: Reports: Hx Asthma History: Denies: Hx Dialysis Musculoskeletal History: Reports: Other Musculoskeletal History - LEFT CTS Sensory History: Denies: Hx Cataracts, Hx Glaucoma Opthamlomology History: Denies: Hx Cataracts, Hx Glaucoma EENT History: Denies: Hx Deafness Neurological History: Denies: Hx Developmental Delay - Cancer History Hx Chemotherapy: No - Surgical History Surgery Procedure, Year, and Place: BILATERAL TUBAL LIGATION [place] [facility] [place] ECTOPIC , REMOVAL OF FALLOPIAN TUBE AND OVARY 1998 [facility] [place]x Anesthesia Reactions: No Infectious Disease History: No Infectious Disease History: Denies: Traveled Outside the [place] in Last 30 Days - Family History Known Family History: Negative: Cardiac Disease - Social History Alcohol Use: Occasionally Alcohol Amount: 3 GLASSES/WEEK Hx Substance Use: No Substance Use Type: Reports: None Hx Tobacco Use: Yes Smoking Status (MU): Never Smoked Tobacco Review of Systems Constitutional: Negative Eyes: Negative ENT: Negative Cardiovascular: Negative Respiratory: Negative Gastrointestinal: Negative Genitourinary: Negative Musculoskeletal: Negative Skin: Other Neurological: Negative Psychological: Normal All Other Systems Reviewed And Are Negative: Yes Physical Exam - Summary Physical Exam Summary: Very small puncture to distal tip of right index finger. Bleeding controlled. Triage Information Reviewed: Yes Vital Signs On Initial Exam: Initial Vitals Temp Pulse Resp BP Pulse Ox 98.1 F 72 16 131/84 99 09/30/19 00:03 09/30/19 00:03 09/30/19 00:03 09/30/19 00:03 09/30/19 00:03 Vital Signs Reviewed: Yes Appearance: Positive: Well-Appearing Skin: Positive: Warm Head/Face: Positive: Normal Head/Face Inspection Eyes: Positive: Normal Neck: Positive: Supple Respiratory/Lung Sounds: Positive: Clear to Auscultation Cardiovascular: Positive: Normal Abdomen Description: Positive: Nontender Musculoskeletal: Positive: Normal Neurological: Positive: Normal Psychiatric: Positive: Normal AVPU Assessment: Alert - Gray Coma Scale Best Eye Response: 4 - Spontaneous Best Motor Response: 6 - Obeys Commands Best Verbal Response: 5 - Oriented Coma Scale Total: 15 Procedures - Sedation Patient Received Moderate/Deep Sedation with Procedure: No Diagnostics - Vital Signs Vital Signs Temp Pulse Resp BP Pulse Ox 09/30/19 00:03 98.1 F 72 16 131/84 99 - Laboratory Lab Results: Lab Results 09/30/19 09/30/19 Range/Units 00:52 00:52 WBC 6.2 (3.5-10.8) 10^3/uL RBC 4.27 (3.70-4.87) 10^6 /uL Hgb 11.4 L (12.0-16.0) g/dL Hct 34 L (35-47) % MCV 80 (80-97) fL MCH 27 (27-31) pg MCHC 33 (31-36) g/dL RDW 14 (10-15) % Plt Count 334 (150-450) 10^3/uL MPV 8.2 (7.4-10.4) fL Neut % (Auto) 62.6 % Lymph % (Auto) 26.0 % [place] % (Auto) 7.4 % Eos % (Auto) 3.3 % Baso % (Auto) 0.7 % Absolute Neuts (auto) 3.9 (1.5-7.7) 10^3/ul Absolute Lymphs (auto) 1.6 (1.0-4.8) 10^3/ul Absolute Monos (auto) 0.5 (0-0.8) 10^3/ul Absolute Eos (auto) 0.2 (0-0.6) 10^3/ul Absolute Basos (auto) 0.0 (0-0.2) 10^3/ul Absolute Nucleated RBC 0.0 10^3/ul Nucleated RBC % 0.1 Sodium 136 (135-145) mmol/L Potassium 3.4 L (3.5-5.0) mmol/L Chloride 104 (101-111) mmol/L Carbon Dioxide 23 (22-32) mmol/L Anion Gap 9 (2-11) mmol/L BUN 10 (6-24) mg/dL Creatinine 0.67 (0.51-0.95) mg/dL Est GFR ( Amer) 116.2 (>60) Est GFR (Non-Af Amer) 96.1 (>60) BUN/Creatinine Ratio 14.9 (8-20) Glucose 97 (70-100) mg/dL Calcium 9.1 (8.6-10.3) mg/dL Total Bilirubin 0.60 (0.2-1.0) mg/dL AST 24 (13-39) U/L ALT 16 (7-52) U/L Alkaline Phosphatase 66 (34-104) U/L Total Protein 7.1 (6.4-8.9) g/dL Albumin 4.1 (3.2-5.2) g/dL Globulin 3.0 (2-4) g/dL Albumin/Globulin Ratio 1.4 (1-3) Beta HCG, Quant < 0.60 mIU/mL Result Diagrams: 09/30/19 00:52 09/30/19 00:52 Lab Statement: Any lab studies that have been ordered have been reviewed, and results considered in the medical decision making process. Course/Dx - Course Course Of Treatment: [facility] presents for possible needle stick to distal tip of left index finger while changing laundry bags. Patient states she lifted bag and felt something sharp poke her finger, with positive bleeding afterwards. Denies any other pain, injury or symptoms. Vital signs within normal limits. Postexposure labs taken. Patient started on Wednesday and Isentress. Provided with 5 days of same here in the ED, and prescription for 25 further days available at [facility] pharmacy. - Diagnoses Provider Diagnoses: Exposure to body fluid due to accidental needlestick injury Discharge ED - Sign-Out/Discharge Documenting (check all that apply): Patient Departure - Discharge Plan Condition: Stable Disposition: HOME Prescriptions: Raltegravir* [Isentress*] 400 mg PO BID 25 Days #50 tab Tenofovir/Emtricitab 200/300 * [Truvada 200/300 mg*] 1 tab PO DAILY 25 Days #25 tab Patient Education Materials: Postexposure Prophylaxis (ED) Referrals: Bridgette Giles DO [Primary Care Provider] - Additional Instructions: Take medications as directed for 30 days. Remainder of prescription available at the [facility] pharmacy. Return to the ED for any new or worsening symptoms. - Billing Disposition and Condition Condition: STABLE Disposition: Home
[2019-09-30 01:48] VITALS: BP 136/75
[2019-09-30 01:51] LABS: Hepatitis B Surface Ab Not Immune (Immune); Hepatitis C Antibody Negative (Negative)
== END 2019-09-30 01:45 | disposition home or self-care (01) ==
LOC: ED 00:01
DX: Z77.21 Contact with and (suspected) exposure to potentially hazardous body fluids (principal); W46.0XXA Contact with hypodermic needle, initial encounter; Y92.239 Unspecified place in hospital as the place of occurrence of the external cause; Y99.0 Civilian activity done for income or pay; J45.909 Unspecified asthma, uncomplicated; Z98.51 Tubal ligation status
CPT/HCPCS: 36415; 80053; 84702; 85025; 86706; 86803; 87340; 87389; 99283